=== PATIENT | female | born 1990 ===

== ENCOUNTER → 2023-06-24 08:42 | Outpatient (CLI) | payer OTHER, SELFPAY ==
[2023-06-24 10:19] LABS: HCG Quantitative /Beta subunit 106.3 mIU/mL
== END ==
PROVIDERS: Referring Provider Obstetrics & Gynecology; Visit Provider Obstetrics & Gynecology
DX: N91.2 Amenorrhea, unspecified (principal)
CPT/HCPCS: 36415; 84702

== ENCOUNTER → 2023-07-23 11:36 | Outpatient (CLI) | payer OTHER, SELFPAY ==
[2023-07-23 15:57] LABS: Urine N gonorrhoeae NOT DETECTED
[2023-07-23 16:19] LABS: Urine Chlamydia NOT DETECTED
== END ==
PROVIDERS: Visit Provider Obstetrics & Gynecology
DX: Z11.3 Encounter for screening for infections with a predominantly sexual mode of transmission (principal); Z34.01 Encounter for supervision of normal first pregnancy, first trimester; Z3A.08 8 weeks gestation of pregnancy
CPT/HCPCS: 87491; 87591

== ENCOUNTER → 2023-08-23 10:08 | Outpatient (CLI) | payer OTHER, SELFPAY ==
[2023-08-23 11:24] LABS: Add Manual Diff / Slide Review NO; Basophils Absolute Auto 0 /uL (0-100); Basophils Percent Auto 0.3 % (0-2); Eosinophils Absolute Auto 100 /uL (0-450); Eosinophils Percent Auto 0.6 % (2-4); Hematocrit 37.4 % (36-46); Lymphocytes Absolute Auto 2000 /uL (1100-4500); Lymphocytes Percent Auto 21.8 % (25-40); Mean Corpuscular HGB Conc 34.8 % (30-36); Mean Corpuscular Hemoglobin 29.2 PG (26-34); Mean Corpuscular Volume 83.7 fL (80-100); Monocytes Absolute Auto 400 /uL (0-900); Monocytes Percent Auto 4.8 % (3-14); Neutrophils Absolute Auto 6700 /uL (1500-7000); Neutrophils Percent Auto 72.5 % (50-75); Platelet Count 261 X10^3/uL (150-400); Red Blood Cell Count 4.46 X10^6/uL (4.0-5.2); Red Cell Distribution Width 12.9 % (11.6-14.8); White Blood Cell Count 9.3 X10^3/uL (4.5-11.0)
[2023-08-23 12:43] LABS: Hepatitis B Surface Antigen NEGATIVE s/c (NEGATIVE); Rubella Antibody IgG 22.8 IU/mL (>15)
[2023-08-23 13:01] LABS: HIV 1 & 2 Ab/Ag 4th Gen Combo NEGATIVE (NEGATIVE); Hep C Virus Ab w/Reflex Quant NEGATIVE s/c (NEGATIVE)
[2023-08-24 04:10] LABS: RPR Screen Non Reactive (Non Reactive)
[2023-08-24 07:21] LABS: Varicella IgG Antibody 1700 index (Immune >165)
== END ==
PROVIDERS: Referring Provider Obstetrics & Gynecology; Visit Provider Obstetrics & Gynecology
DX: Z34.00 Encounter for supervision of normal first pregnancy, unspecified trimester (principal); E28.2 Polycystic ovarian syndrome
CPT/HCPCS: 80055; 83036; 86787; 86803; 86850; 86900; 86901; 87086; 87389

== ENCOUNTER → 2023-10-18 10:18 | Outpatient (CLI) | payer OTHER, SELFPAY ==
--- NOTE | 2023-10-18 10:21 | DI.US.S_ITS ---
PROCEDURE: US OB >= 14 WEEKS FETUS INDICATIONS: Anatomy Scan OUTSIDE/PRIOR DATING DATA: Last menstrual period (LMP): 05/26/2023. LMP-based estimated date of delivery (MARNI): 03/01/2024. First dating scan (date and location): 07/23/2023. Estimated date of delivery (MARNI) from first dating scan: 03/03/2024. The calculations are made using the working MARNI of 03/01/2024. TECHNIQUE: Real-time scanning was performed of the fetus, with image documentation and biometric measurements. Endovaginal scanning: None COMPARISON: None. FINDINGS: General: A single living intrauterine gestation is present. Presentation: Breech. Placenta: Placental position is posterior , without previa. Amniotic fluid index: 14.1 cm, normal range is 5-24 cm. Single deepest vertical pocket is 5.4 cm. heart rate: 140 beats per minute. Maternal cervical canal: 3.4 cm long. Normal lower limit is 2.5 cm. biometrics: Biparietal diameter: 4.9 cm, 20 week 5 day Head circumference: 18.4 cm, 20 week 5 day Abdominal circumference: 15.1 cm, 20 week 2 day Femur length: 3.1 cm, 19 week 2 day Clinically estimated gestational age: 20 week 5 day Composite gestational age from present scan: 20 week 2 day Estimated weight and percentile: 323 g, 12th percentile Anatomic survey: Neuro: Ventricles are non-dilated at less than 10 mm. Cisterna magna is normal at 3-11 mm. Cerebellum is normal in size and morphology. Nuchal skin fold: Normal at less than 6 mm between 14-21 weeks gestational age. Face: Nose and lips, facial profile are normal. Spine: No evidence for spina bifida. Heart: 4-chambered heart is present, with normal ventricular outflow tracts. Diaphragm: Diaphragm is intact. Stomach: Left-sided stomach is present. Kidneys: No hydronephrosis. Normal is less than 5 mm in 2nd trimester, less than 7 mm in 3rd trimester. Cord: 3-vessel cord has orthotopic insertion. Bladder: Normal in size. Extremities: All 4 extremities identified. IMPRESSION: Single live intrauterine consistent with 20 week 2 day gestation by current ultrasound Approved by: Dawson Jacinto M.D. on 10/18/2023 at 20:37
== END ==
PROVIDERS: PCP Family Medicine; Referring Provider Obstetrics & Gynecology; Visit Provider Obstetrics & Gynecology
DX: Z36.89 Encounter for other specified antenatal screening (principal); Z3A.20 20 weeks gestation of pregnancy
CPT/HCPCS: 76811

== ENCOUNTER → 2023-11-16 08:26 | Outpatient (CLI) | payer OTHER, SELFPAY ==
[2023-11-16 11:05] LABS: Hemoglobin 12.1 g/dL (12.0-16.0)
[2023-11-16 11:40] LABS: GTT (PREG) 1 Hour PP 50gm Dose 150 mg/dL (76-139)
== END ==
LOC: LAB 08:28
PROVIDERS: PCP Family Medicine; Referring Provider Obstetrics & Gynecology; Visit Provider Obstetrics & Gynecology
DX: Z34.02 Encounter for supervision of normal first pregnancy, second trimester (principal); Z3A.26 26 weeks gestation of pregnancy
CPT/HCPCS: 36415; 82950; 85014; 85018

== ENCOUNTER → 2023-11-29 11:01 | Outpatient (CLI) | payer OTHER, SELFPAY | PROVIDERS: PCP Family Medicine; Visit Provider Specialist | DX: R31.9 Hematuria, unspecified (principal); Z3A.26 26 weeks gestation of pregnancy | CPT/HCPCS: 87086 ==

== ENCOUNTER 2024-01-21 03:25 | Outpatient (CLI) | payer OTHER, SELFPAY | END 2024-01-21 04:25 | disposition home or self-care (01) | LOC: OB 01-22 11:44 | PROVIDERS: PCP Family Medicine; Referring Provider Family Medicine; Visit Provider Family Medicine | DX: O42.913 Preterm premature rupture of membranes, unspecified as to length of time between rupture and onset of labor, third trimester (principal); Z3A.34 34 weeks gestation of pregnancy | CPT/HCPCS: 59025; 84112; G0378; G0379 ==

== ENCOUNTER 2024-01-21 12:31 | Outpatient (CLI) | payer OTHER, SELFPAY ==
--- NOTE | 2024-01-21 13:31 | DI.US.S_ITS ---
PROCEDURE: US OB >= 14 WEEKS FETUS INDICATIONS: EFW; CX OUTSIDE/PRIOR DATING DATA: Last menstrual period (LMP): May 26, 2023. LMP-based estimated date of delivery (MARNI): March 01, 2024. First dating scan (date and location): July 23, 2023. Estimated date of delivery (MARNI) from first dating scan: March 03, 2024. The calculations are made using the ultrasound MARNI of March 01, 2024. TECHNIQUE: Real-time scanning was performed of the fetus, with image documentation and biometric measurements. Endovaginal scanning: Not performed COMPARISON: [facility], , US OB >= 14 WEEKS FETUS, 12/27/2023, 9:39. FINDINGS: General: A single living intrauterine gestation is present. Presentation: Vertex. Placenta: Placental position is fundal , without previa. Amniotic fluid index: 14.4 cm, normal range is 5-24 cm. Single deepest vertical pocket is 4.6 cm. heart rate: 145 beats per minute. Maternal cervical canal: 4.0 cm long. Normal lower limit is 2.5 cm. biometrics: Biparietal diameter: 8.5 cm, 34 weeks 1 day Head circumference: 30.7 cm, 34 weeks 1 day Abdominal circumference: 29.0 cm, 33 weeks 0 days Femur length: 6.5 cm, 33 weeks 5 days Clinically estimated gestational age: 34 weeks 2 days Composite gestational age from present scan: 33 weeks 5 days Estimated weight and percentile: 2193 g, 21% IMPRESSION: 1. Single live intrauterine gestation with a composite gestational age of 33 weeks, 5 days which is concordant with dates by initial scan. 2. Estimated weight percentile of 21%. We strive to produce accurate, complete, and clear reports of imaging services. To assist us in improving patient care, this report was composed using standard report templates and voice recognition software. Therefore, it may contain abnormal punctuation, insertions and/or omissions. Occasional wrong-word or sound-alike substitutions may occur. Though we review the report and make efforts to correct it, we do recommend that the report be read carefully in proper context to recognize any text inaccuracies. Dictated by: Ignacia Munguia M.D. on 01/21/2024 at 14:45 Approved by: Ignacia Munguia M.D. on 01/21/2024 at 14:49
--- NOTE | 2024-01-21 14:06 | PM.OBTRLD ---
Visit Information Visit Information Date of evaluation: 01/21/24 Primary OB Provider: Rosa Mcdonough On-call OB Provider: Clair Patel Comments/Additional reasons for admission: 33yo at 34w2d here with contractions. Pt reports contractions starting last night. She feels they are stronger. No LOF, bleeding. She is feeling her baby move regularly. 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) current occupational exposures/hazards: No special tacos needs: No travel history: recent (domestic only) seatbelt use: always helmet use: Yes water heater temp set < 120 deg: Yes working smoke detector in home: Yes fire extinguisher in home: Yes carbon monox detector in home: Yes firearms in home: Yes firearms unloaded and locked: Yes do you feel safe at home: Yes Smoking Status: Never smoker second hand exposure: No alcohol intake: former (1-2/week when not ) substance use type: marijuana during the past year weight has: increased > 10 lbs (muscle mass from increased exercise) well-balanced diet: daily or most days daily servings fruits/ve or more times/day caffeine: Yes Type(s) of exercise: walking, aerobic and resistance training frequency: 5-6 times per week Evaluation Evaluation Baseline heart rate: 140 Variability: Moderate (11-25) monitor accelerations: Present Monitor Decelerations: Absent Category of Tracing: Reactive Diagnosis, Plan/Disposition Plan/Disposition Plan: 33yo at 34w2d here with contractions. Very few contractions on prolonged monitoring. Cervical length > 3cm. Pt received 1L IVF with improvement in feeling of contractions. U/A without evidence UTI. Stable for d/c home. OB Disposition: home
[2024-01-21 14:08] LABS: Appearance Urine UA CLEAR; Bilirubin Urine UA NEGATIVE (NEGATIVE); Color Urine UA YELLOW; Glucose Urine UA NEGATIVE (Negative); Ketones Urine UA 1+ (NEGATIVE); Leukocyte Esterase Urine UA NEGATIVE (NEGATIVE); Nitrite Urine UA NEGATIVE (Negative); Occult Blood Urine UA NEGATIVE (Negative); Protein Urine UA NEGATIVE (Negative); Specific Gravity Urine UA 1.025 (1.000-1.035); Urine Volume 10mL (spun)
[2024-01-21 14:12] LABS: Bacteria Urine None Seen; Culture Indicated Urine Cult Not Indicated; RBC Urine None Seen (0-5/HPF); Squamous Epithelial Cell Urine 1-5 /HPF (0-5/HPF); WBC Urine None Seen (0-5/HPF)
== END 2024-01-21 14:28 | disposition home or self-care (01) ==
LOC: LABOR 12:52 → OB 01-22 11:43
PROVIDERS: PCP Family Medicine; Referring Provider Family Medicine; Visit Provider Family Medicine
DX: O47.03 False labor before 37 completed weeks of gestation, third trimester (principal); Z3A.34 34 weeks gestation of pregnancy; O42.913 Preterm premature rupture of membranes, unspecified as to length of time between rupture and onset of labor, third trimester
CPT/HCPCS: 59025; 59050; 76811; 76817; 81001; 84112; 96360; G0378; G0379

== ENCOUNTER → 2024-02-07 09:43 | Outpatient (CLI) | payer OTHER, SELFPAY ==
[2024-02-08 13:50] LABS: Strep Grp B PCR POS for Grp B Strep
== END ==
PROVIDERS: PCP Family Medicine; Visit Provider Obstetrics & Gynecology
DX: Z34.03 Encounter for supervision of normal first pregnancy, third trimester (principal); Z3A.36 36 weeks gestation of pregnancy
CPT/HCPCS: 87186; 87653

== ENCOUNTER 2024-02-24 06:01 | Inpatient (IN) | payer OTHER, SELFPAY ==
[2024-02-24] MEDS: LACTATED RINGERS 1,000 ML 999 ML IV (07:19)
[2024-02-24 07:26] VITALS: BP 119/85
--- NOTE | 2024-02-24 07:27 | SUR.OPER ---
Supine on Padded OR bed, head on pillow, safety belt at thigh, arms secured on padded arm boards at <90 degrees abduction. Bump under right buttock. Legs uncrossed with pillow under knees, gel pad to heels, tape over blanket to lower legs.
[2024-02-24 07:30] LABS: Add Manual Diff / Slide Review NO; Basophils Absolute Auto 100 /uL (0-100); Basophils Percent Auto 0.5 % (0-2); Eosinophils Absolute Auto 100 /uL (0-450); Eosinophils Percent Auto 1.2 % (2-4); Hematocrit 39.1 % (36-46); Hemoglobin 13.2 g/dL (12.0-16.0); Lymphocytes Absolute Auto 2400 /uL (1100-4500); Mean Corpuscular HGB Conc 33.7 % (30-36); Mean Corpuscular Hemoglobin 27.6 PG (26-34); Mean Corpuscular Volume 81.8 fL (80-100); Monocytes Absolute Auto 700 /uL (0-900); Monocytes Percent Auto 6.1 % (3-14); Neutrophils Absolute Auto 7700 /uL (1500-7000); Neutrophils Percent Auto 70.2 % (50-75); Platelet Count 244 X10^3/uL (150-400); Red Blood Cell Count 4.78 X10^6/uL (4.0-5.2)
--- NOTE | 2024-02-24 07:37 | P.HPOB_ITS ---
OB HPI Date/Time Date of admission: 02/24/24 Date Patient Seen: 02/24/24 Time Patient Seen: 07:37 History of Present Condition Chief complaint: Primary MARNI Calculator 2 Estimated Delivery Date Method Current WG Current Estimate 03/01/24 Manual 39w 1d Other Estimates 03/03/24 Ultrasound #1 38w 6d Estimated Gestational Age (weeks): 30+1 : 1 Para: 0 care: good care, initiated at week # (8), number of visits (11) and pounds weight gain (31) Dating criteria OB: LMP confirmed by 1st trimester US Ultrasounds: normal 1st trimester US and abnormal US findings (12ile for growth at FAS) Obstetrical complications: none Medical complications OB: none Indications Operative indications ( section): elective Preadmission Labs Last OB Lab Results: 2 Blood Type A Positive 08/23/23 10:26 Antibody Screen Negative 08/23/23 10:26 Hematocrit 39.1 % (36-46) 02/24/24 07:10 Hemoglobin 13.2 g/dL (12.0-16.0) 02/24/24 07:10 Hepatitis B Surface Antigen Negative s/c (NEGATIVE) 08/23/23 10 :26 Hepatitis C Antibody Negative s/c (NEGATIVE) 08/23/23 10:26 Rubella Antibody 22.8 IU/mL (>15) 08/23/23 10:26 Varicella-Zoster IgG Antibody 1700 index (Immune >165) 08/23/23 10:26 Glucose 1 Hour 150 mg/dL (76-139) H 11/16/23 10:25 Group B Streptococcus (PCR) Pos for grp b strep H 02/07/24 09:4 3 -: Chlamydia screen: negative, Gonorrhea screen: negative and Urine: negative -: PAP smear: Normal Genetic Screens: Cell-free DNA: Normal (normal) External Labs -: Urine: negative Evaluation Evaluation Baseline heart rate: 135 Variability: Moderate (11-25) monitor accelerations: Present Monitor Decelerations: Absent Contraction Frequency (minutes): 4 Uterine Contraction Intensity: Mild Status: Category l PFSH Medical History (Updated 02/07/24 @ 09:42 by Rosa Mcdonough MD) Adopted Irregular menstrual cycle Surgical History (Updated 06/25/23 @ 09:11 by Sully Louis, RN) H/O oral surgery Hx of tonsillectomy [place] teeth extracted Social History marital status: number of children: 0 household members: spouse lives independently: Yes caregiver/support person: No housing: house pets and animals: Yes (3 dogs, 1 cat, managing litter box) education level: college (associate's degree) 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) current occupational exposures/hazards: No special tacos needs: No travel history: recent (domestic only) seatbelt use: always helmet use: Yes water heater temp set < 120 deg: Yes working smoke detector in home: Yes fire extinguisher in home: Yes carbon monox detector in home: Yes firearms in home: Yes firearms unloaded and locked: Yes do you feel safe at home: Yes Smoking Status: Never smoker second hand exposure: No alcohol intake: former (1-2/week when not ) substance use type: marijuana during the past year weight has: increased > 10 lbs (muscle mass from increased exercise) well-balanced diet: daily or most days daily servings fruits/ve or more times/day caffeine: Yes Type(s) of exercise: walking, aerobic and resistance training frequency: 5-6 times per week Meds Home Medications and Allergies Home Medications Medication Instructions Recorded Confirmed Type WVL51-CP 400 mcg-om3 35 mg-dha 25 1 tab PO DAILY 06/25/23 02/24/24 History mg-epa 5 mg-fish oil chewable tablet omega 3-knc-nkn-fish oil 1,200 mg 1 cap PO DAILY 06/25/23 02/24/24 History (144 mg-216 mg) capsule (Fish Oil) blood sugar diagnostic (Blood #50 ea 11/18/23 02/24/24 Rx Glucose Test strips) blood-glucose meter (Blood Glucose #1 ea 11/18/23 02/24/24 Rx Monitoring kit) lancets #100 ea 11/18/23 02/24/24 Rx Allergies Allergy/AdvReac Type Severity Reaction Status Date / Time hydrocodone AdvReac Mild vomiting Verified 02/21/24 08:54 oxycodone [OXYCODONE] AdvReac Mild Vomiting Unverified 02/21/24 08:54 Penicillins AdvReac Mild vomiting Verified 02/21/24 08:54 OB Exam Narrative Exam Narrative: Gen: Sitting up in bed, no acute distress Cardiovascular: Regular rate rhythm Lungs: Clear to auscultation bilaterally Fundal height: 40 cm Estimated weight: 7-1/2 lb Extremities: 1+ edema, no clonus Objective Labs 02/24/24 07:10 Labs: Laboratory Results - last 24 hr 02/24/24 07:10 WBC 11.0 RBC 4.78 Hgb 13.2 Hct 39.1 MCV 81.8 MCH 27.6 MCHC 33.7 RDW 14.0 Plt Count 244 Neut % (Auto) 70.2 Lymph % (Auto) 22.0 L [place] % (Auto) 6.1 Eos % (Auto) 1.2 L Baso % (Auto) 0.5 Neut # (Auto) 7700 H Lymph # (Auto) 2400 [place] # (Auto) 700 Eos # (Auto) 100 Baso # (Auto) 100 Assessment and Plan Assessment and Plan Assessment and Plan narrative: Assessment: 33-year-old 1 para 0 at 39-,1/7 weeks gestation who desires an elective primary section Elevated 1 hour glucose, normal hemoglobin A1c, normal blood sugars at home GBS positive Plan: Primary low-transverse section The risks, benefits, and alternatives to the procedure were explained to the patient. The risks including bleeding, infection, injury to the bowel, bladder, or ureters. She understands these risks and agrees to proceed. A full par Q was held and consent form was signed. We will check baby's blood sugars after delivery Time Spent with Patient Total time spent with greater than 50% in coordination of care (as documented) at patient's floor/unit and/or counseling patient:: less than 15 minutes
--- NOTE | 2024-02-24 07:52 | PM.PREOP ---
Pre-operative Note Interval Note History & Physical reviewed/Exam performed by Physician: Yes Changes to H&P: No H&P completed within 30 days and has changed as indicated here:: 02/24/24
[2024-02-24] MEDS: CEFAZOLIN 2 GM/100 ML PREMIX 100 ML IV (08:10)
--- NOTE | 2024-02-24 08:42 | SUR.OPER ---
0825: BABY BOY DELIVERED APGARS 8 & 9. PLACENTA & CORD BLOOD TUBES SENT W/BIRTHING GERMAN. Merary RODRIGUEZ RN.
[2024-02-24 09:12] VITALS: BP 100/63; PULSE 120; RESP 13; TEMP 36.7; O2SAT 100
[2024-02-24 09:17] VITALS: BP 99/59; PULSE 92; RESP 14; O2SAT 100
[2024-02-24 09:22] VITALS: BP 98/56; PULSE 84; RESP 14; O2SAT 100
--- NOTE | 2024-02-24 09:43 | P.OP_ITS ---
Operative Date/Time/Diagnoses Date of procedure: 02/24/24 Time of procedure: 09:43 Pre-op diagnosis: Thirty-nine weeks' gestation Contracted pelvis Short stature Desires primary section Post-op diagnosis: same Procedure & Clinicians Procedure: Primary low-transverse section Same procedure as scheduled: Yes Indications: 39 weeks gestation Desires primary section Contracted pelvis Short stature Surgeon: Rosa Lopez Yes if Unassisted: No Machine Erector: Tanya Garcia Reason for Machine Erector: The ophthalmic surgical assistant was necessary to retract upon entry into the abdomen and uterus. She assisted with delivery of the with fundal pressure. She assisted with closure of the uterus and abdomen with retraction, clipping of suture, and closure of the contralateral fascia. Anesthesia Type: Spinal (With Duramorph) Operative Notes Findings: Live male in the WALTER presentation Loose nuchal cord x1 Normal uterus, tubes, and ovaries Closure Type: primary Specimen(s): cord blood and placenta Intraoperative meds administered: Duramorph and Ketorolac Applied: Catheter (To continuous drainage) Estimated Blood Loss (mL): 560 Blood products transfused: none Procedure in detail: The patient was taken to the operating room where she was placed in the seated position. Spinal anesthesia was administered with Duramorph. She was then placed in the dorsal supine position with a leftward tilt, and prepped and draped in the usual sterile fashion. A Abreu catheter was placed. A time-out was performed. After spinal anesthesia was found to be adequate, a Pfannenstiel skin incision was made 2 fingerbreadths above the pubic symphysis and carried through to the underlying layer of fascia. The fascia was nicked in the midline and the incision extended bilaterally with the Kothari scissors. The superior aspect of the fascial incision was grasped with the Patricia clamps, elevated, and the underlying rectus muscles dissected off sharply and bluntly. Attention was then turned to the inferior aspect of this incision which in a similar fashion, was grasped Patricia clamps, elevated, and the underlying rectus muscles dissected off sharply and bluntly. The rectus muscles were in the midline. The peritoneum was identified, grasped between 2 hemostats, and entered sharply with the Metzenbaum scissors. This incision was extended bluntly. An Chilango was placed into the incision. A transverse incision was made above the bladder reflection and carried through to the amniotic sac. Upon entering the amniotic sac there was copious amounts of clear amniotic fluid. This incision was extended bluntly. The infant's head was delivered without difficulty. A loose nuchal cord x1 was reduced. The remainder of the body delivered without difficulty. The infant was wrapped in a warm towel. After 1 minute, the cord was double clamped and cut. Cord bloods were obtained. Pitocin was given in the IV fluids. The placenta was delivered by expression. The uterus was cleared of all clots and debris. The uterine incision was repaired with #1 Chromic in a running interlocking fashion. A second layer of the same suture was used for an imbricating layer. Hemostasis was achieved. The Chilango was removed. The gutters were cleared of all clots and debris. The tubes and ovaries were examined and were found to be normal. The peritoneum was closed using 2-0 Vicryl in a running fashion. The fascia was closed with 0 Vicryl in a running fashion. The subcutaneous layer was copiously irrigated with warm normal saline. The Bovie was used for hemostasis. Five simple interrupted sutures with 3-0 Vicryl were placed to reapproximate the subcutaneous layer. The skin was closed with 4-0 Monocryl in a subcuticular fashion. Steri-Strips and an Aquacel dressing were placed. The uterus was expressed of a small amount of old blood. Sponge, lap, and instrument counts were correct x2. The patient tolerated the procedure well, and was taken to PACU in stable condition. Complications: none [place] Baby 1: Gender: Male Presentation: vertex Position: Right Occiput Anterior Placental Delivery Description: Expressed Cord Vessel Description: 3 Vessels, Nuchal Cord, Loose, Reduced and Clamped/Cut (after one minute) score (1 min): 8 score (5 min): 9 weight: 6 lb 14.2 oz Post-operative Condition: stable Disposition: PACU Aftercare: routine postop
[2024-02-24] MEDS: KETOROLAC 30 MG/ML VIAL IV ×3 (10:17→22:24)
[2024-02-24] MEDS: ACETAMINOPHEN 325 MG TABLET 650 MG PO ×3 (10:18→22:24)
[2024-02-24] MEDS: diphenhydrAMINE 50 MG/ML VIAL 25 MG IV ×2 (13:06→18:20)
[2024-02-25] MEDS: KETOROLAC 30 MG/ML VIAL IV (04:39)
[2024-02-25] MEDS: ACETAMINOPHEN 325 MG TABLET 650 MG PO ×2 (04:40→10:42)
[2024-02-25 06:27] LABS: Hematocrit 33.3 % (36-46); Hemoglobin 11.2 g/dL (12.0-16.0)
[2024-02-25] MEDS: IBUPROFEN 600 MG TABLET PO (10:42)
[2024-02-25] MEDS: PRENATAL VIT,CALC/IRON/FOLIC 1 TABLET 1 TAB PO (10:42)
[2024-02-25] MEDS: DOCUSATE 100 MG CAPSULE PO (10:43)
--- NOTE | 2024-02-25 12:14 | P.DS_ITS ---
Discharge Providers Provider Date of admission: 02/24/24 06:01 Discharge Date: 02/25/24 Primary care physician: Amber Resendez MD Consults: 02/24/24 09:58 Consult to Foundation Relations Director Routine Comment: Discharge provider: Rosa Mcdonough MD Summary Hospital Course Date Patient Seen: 02/25/24 Time Patient Seen: 12:14 Diagnoses: Thirty-nine weeks' gestation Primary elective section Contracted pelvis Hospital Course: Patient is a 33-year-old 1 para 1 who presented on February 24, 2024 for a scheduled primary section. She underwent this procedure under spinal anesthesia without complication. Her postoperative course was unremarkable and she was discharged home on February 25, 2024. She was tolerating a diet. Her pain was well controlled. was going well. She was ambulating without assistance. She was passing flatus. She was voiding without the catheter. Peripartum Data Delivery Method: Section Procedures: Spinal anesthesia Primary elective low-transverse section complications: none 1: Gender: Male Disposition of : home Status at Discharge Cognitive/behavioral status at discharge: oriented Functional status at discharge: independent ambulation Overall status at discharge: patient is progressing back to baseline Time Spent with Patient Time attestation: Total time spent providing and/or coordinating discharge services: Time spent: Less than 30 minutes Objective Labs 02/25/24 06:20 Labs: Laboratory Results - last 24 hr 02/25/24 06:20 Hgb 11.2 L Hct 33.3 L Exam Vital Signs (past 8 hours): Oxygen Delivery Method Room Air Narrative Exam Narrative: Generally: Patient is sitting up in bed, holding infant, no acute distress Lungs: Clear to auscultation bilaterally Cardiovascular: Regular rate and rhythm Fundus: Firm at U/-1 Incision: Clean dry and intact with Aquacel dressing Extremities: Trace edema, negative [place] Discharge Plan Discharge Plan Patient Disposition: Home Provider Discharge Comment: Call with fever, chills, redness or drainage around the incision, or bleeding vaginally more than a pad in an hour Ibuprofen 600 mg every 6 hours as needed Tylenol 650 mg every 6 hours as needed Tramadol as needed Discharge orders & Medications Prescriptions: New tramadol 50 mg tablet 50 mg PO Q4H PRN (Reason: pain) Qty: 20 0RF Continued [id number] oil 400 mcg-35 mg -25 mg-5 mg tablet,chewable 1 tab PO DAILY omega 4-yqv-iab-fish oil [Fish Oil] 1,200 (144-216) mg capsule 1 cap PO DAILY No Action (DME) Blood Glucose Test Strip See Rx Instructions .ROUTE .MEDSUPPLY Qty: 50 3RF Rx Instructions: Testing blood sugars fasting and 2 hr after each meal. 4x daily (DME) lancets Misc See Rx Instructions .ROUTE .MEDSUPPLY Qty: 100 3RF Rx Instructions: Testing blood sugars fasting and 2 hr after each meal. 4x daily (DME) blood-glucose meter [Blood Glucose Monitoring] Kit See Rx Instructions .ROUTE .MEDSUPPLY Qty: 1 0RF Rx Instructions: To use with testing fasting and 2 hr after each meal. 4x daily Follow up/Referrals: Kitty Bailon MD [Physician] - (Aquacel removal in [address] Bailon: March 02 @ 3:30pm. At our one week appt. please make a 6 week post- follow up:)) Diet/Activity/Treatments Diet: Regular Activity: No heavy lifting Nothing in the vagina for 6 weeks Skin/Wound/Dressing Care Report to your healthcare provider any signs of infection, such as:: chills, fever, increased pain, unusual drainage and unusual redness Dressing: Do not remove Visit Report/Discharge Packet Instructions: DI for , DI for Prescription Opioid Use Stand Alone Forms: Discharge: Care, Patient Portal/API, Stroke Signs & Symptoms Discharge Data Primary Care Provider: Amber Resendez
[2024-02-25 12:32] VITALS: BP 106/79; PULSE 84; RESP 14; TEMP 36.7
== END 2024-02-25 13:40 | disposition home or self-care (01) | DRG 788 ==
PROVIDERS: Admitting Provider Obstetrics & Gynecology; PCP Family Medicine; Referring Provider Obstetrics & Gynecology; Visit Provider Obstetrics & Gynecology
PROC: 10D00Z1 Extraction of Products of Conception, Low, Open Approach (ICD-10-PCS; CPT 59514; principal; 2024-02-24 07:45)
DX: O99.824 Streptococcus B carrier state complicating childbirth (principal); O82 Encounter for cesarean delivery without indication; Z3A.39 39 weeks gestation of pregnancy; Z37.0 Single live birth
CPT/HCPCS: 36415; 59050; 59510; 59514; 85014; 85018; 85025; 86850; 86900; 86901; J0690; J1200; J1885; J2274; J2405; J2704